=== PATIENT | female | born 1970 | race Caucasian/White ===

== ENCOUNTER 2024-03-14 14:48 | Emergency (ER) | payer OTHER, SELFPAY ==
[2024-03-14 14:56] VITALS: BP 103/58
--- NOTE | 2024-03-14 16:05 | ED.GENMED ---
History of Present Illness
General
Chief Complaint: Chest Pain
Source: patient
Time Seen by Provider: 03/14/24 15:50
History of Present Illness
History of Present Illness:
54yoF with a history of depression presenting for evaluation of chest discomfort. She initially had pain in her left arm 4 days ago while she was sitting watching a movie. The pain was throughout her left arm which resolved after about a minute. She
then had a twinge in her chest which also resolved. The next day, the patient had a transient episode of dizziness and nausea after she was singing in the car. She also had a pressure in her chest at that time. She currently has a mild pressure in
her chest and a sharp pain with peak inspiration. She also states her head feels 'funny.' No shortness of breath, syncope, paresthesias, weakness, visual changes. She called her PCP today and she was advised to go to the ED for evaluation. Her only
current medication is Zoloft.
Past History
Past History
ED Past Medical History: Other ( x2, ventral hernia repair, anxiety, depression)
Social History
Tobacco: Smoker
Alcohol: Occasional
Family History
Family History: Other (Sister with hep C. and pneumonia)
Phy Exam
General Physical Exam
General Presentation: well appearing and no apparent distress
General age: appears stated age
General Skin: warm and dry
General Habitus: normal
General Mental: alert
ENT Exam
ENT Exam: normocephalic
Cardiovascular Exam
Cardiovascular Exam: regular rate/rhythm, no murmur and normal peripheral pulses (2+ radial pulses bilaterally)
Pulmonary Exam
Pulmonary Exam: lungs clear, no respiratory distress, no rales, no crackles, no rhonchi and no wheezing
Neurological Exam
Neurological Exam: alert, no motor deficits and other (CN 2-12 intact. PERRL. EOMs intact. Negative drift x4. Normal finger to nose and heel to [place] bilaterally. )
[place] Coma Scale
Eye Opening: Spontaneous
Verbal Response: Oriented
Motor Response: Obeys Commands
GCS Total Score: 15
Skin Exam
Skin Exam: normal color and warm/dry
Psychiatric Exam
Psychiatric Exam: normal mood/affect
Scores
Heart Score for Chest Pain Patients
STEMI patient?: No
History: Slightly or Non-Suspicious
ECG: Nonspecific Repolarization
Age: >45 - <65 years
Risk Factors: No Risk Factors
Troponin: </= Normal Limit
Heart Score for Chest Pain Patients: 2
Heart Score Risk: 2.5% MACE over next 6 weeks
Course
Orders/Labs/Results
Orders:
Orders
03/14/24 14:49
Electrocardiogram (*1) Urgent
Reason for Study: Chest Pain
EKG- Treatment ONCE
03/14/24 16:05
Cardiac Monitoring- Treatment ONCE
CR Chest - 2 Views Urgent
Comment:
Reason For Exam: CP
03/14/24 16:20
Complete Blood Count/With Diff Urgent
Comprehensive Metabolic Panel Urgent
D-Dimer Urgent
Troponin I Urgent
Abnormal Lab Results
03/14/24
16:20
Hgb 11.2 L g/dL
(12.0-16.0)
Hct 35.7 L %
(37.0-47.0)
MCV 80.4 L fL
(81.0-99.0)
MCH 25.2 L pg
(27.0-31.0)
MCHC 31.4 L g/dL
(33.0-37.0)
Monocytes % 9.9 H %
(1.7-9.3)
Creatinine 1.1 H mg/dL
(0.6-1.0)
Total Bilirubin 0.1 L mg/dl
(0.2-1.3)
03/14/24 16:20
03/14/24 16:20
Vital Signs
Initial and Last Documented VS:
Initial Vital Signs
Temp Pulse Resp BP Pulse Ox
98.2 F 54 18 103/58 100
03/14/24 14:56 03/14/24 14:56 03/14/24 14:56 03/14/24 14:56 03/14/24 14:56
Last Documented Vital Signs
Temp Pulse Resp BP Pulse Ox
98.2 F 53 20 113/70 98
03/14/24 14:56 03/14/24 17:51 03/14/24 17:51 03/14/24 17:51 03/14/24 17:51
MDM/Problems Addressed
Differential Diagnosis Includes:
54yoF here with mild chest pressure. Had a transient episode of L arm pain 4 days ago. Also states head feels 'funny.' No exertional symptoms. VSS. She is well appearing in no distress. Exam is reassuring. Differential diagnosis includes but is not
limited to: ACS, PE, pneumonia, pleurisy, musculoskeletal, nonspecific chest pain
Initial ED plan: Check cardiac labs, D-dimer, EKG, and CXR.
*EKG
Interpreted by ED Provider?: Yes
EKG Intrepretation Date: 03/14/24
Heart Rate: 50
Rate: bradycardiac
Rhythm: sinus
[place]: normal axis
Interval: normal interval
QRS Pattern: normal QRS
Ischemia: T-wave inversion (isolated T wave inversion in V3)
*Critical Care Note
Total Time (30-74mins, 75-104mins- exclusive of procedures): Not Applicable
Update Note
Update Note:
EKG shows sinus bradycardia with T wave inversion in V3. No ST changes or reciprocal changes noted. Troponin WNL. D-dimer normal making PE very unlikely. CXR is clear. HEART score is 2. No indication for admission. She was advised to f/u closely
with her PCP. Strict ED return precautions discussed. She expressed understanding and is agreeable to plan. She was discharged in stable condition.
ED Attending Note
-
Portions of this chart may have been created with voice recognition software.� Occasional wrong word or��sound alike� substitutions may have occurred due to the inherent limitations of voice recognition software.
Discharge Plan
Departure
Patient Disposition: Home (Routine Discharge)
Date of Disposition: 03/14/24
Time of Disposition: 17:32
Patient with high blood pressure during this ER visit?: No
Discharge Problem:
Chest pain
Instructions: Chest Pain PCP Follow Up
Prescriptions:
No Action
sertraline 50 MG tablet
50 mg PO DAILY
doxycycline hyclate 100 MG capsule
100 mg PO Q12 Qty: 20 1RF
hydrocodone-acetaminophen [Vicodin] 1 EACH tablet
1 ea PO Q4HPRN PRN (Reason: pain) Qty: 20 0RF
ondansetron 4 MG tablet,disintegrating
4 mg PO TIDPRN PRN (Reason: NAUSEA) Qty: 20 0RF
ofloxacin 0.3 % drops
2 drp ophthalmic (eye) QID Qty: 5 0RF
Referrals:
Pee Alvarez MD [Family Provider] -
Activity Restrictions/Additional Instructions:
Please call your family doctor tomorrow to schedule a follow-up appointment. Return to the ER immediately with any new or worsening symptoms.
Interventions
Interventions:
*Risk Screen - Suicide Last Done: 03/14/24 14:56
*General Assessment Last Done: 03/14/24 16:21
*Neglect/Abuse Screening Last Done: 03/14/24 14:56
*ED COVID-19 Vaccine History Last Done: 03/14/24 14:56
*Nursing Disposition Last Done: 03/14/24 17:51
ED- Cardiac Assessment Last Done: 03/14/24 16:22
Discharge Date and Time
Discharge Date/Time: 03/14/24 17:52
Print Language: ARMENIAN
[2024-03-14 16:13] VITALS: BMI 23.0
[2024-03-14 16:32] LABS: % Basophils 1.1 % (0-2); % Eosinophils 1.6 % (0-6); % Immature Granulocytes 0.2 % (0-0.5); % Lymphocytes 31.6 % (20.5-51.1); % Monocytes 9.9 % (1.7-9.3); % Neutrophils 55.6 % (42.2-75.2); Absolute Basophils 0.1 10^3/uL (0-0.2); Absolute Eosinophils 0.1 10^3/uL (0-0.7); Absolute Lymphocytes 1.8 10^3/uL (1.2-3.4); Absolute Monocytes 0.6 10^3/uL (0.1-0.6); Absolute Neutrophils 3.2 10^3/uL (1.4-6.5); Hematocrit 35.7 % (37.0-47.0); Hemoglobin 11.2 g/dL (12.0-16.0); Mean Corp Hgb Conc. 31.4 g/dL (33.0-37.0); Mean Corpuscular Hgb 25.2 pg (27.0-31.0); Mean Corpuscular Volume 80.4 fL (81.0-99.0); Mean Platelet Volume 10.3 fL (7.4-10.4); Nucleated Red Blood Cells % 0 %; Platelet Count 259 10^3/uL (130-400); Red Blood Cell Count 4.44 10^6/uL (4.20-5.40); Red Cell Dist. Width 14.5 % (11.5-14.5); White Blood Cell Count 5.7 10^3/uL (4.8-10.8)
[2024-03-14 16:44] LABS: ALT (SGPT) 18 U/L (0-35); AST (SGOT) 21 U/L (14-36); Albumin 4.3 g/dl (3.5-5.0); Alkaline Phosphatase 44 U/L (38-126); Blood Urea Nitrogen 17 mg/dl (7-17); Calcium 9.3 mg/dl (8.4-10.2); Carbon Dioxide 26 mmol/L (22-30); Chloride 105 mmol/L (98-107); D-Dimer 0.33 ug/mlFEU (0.00-0.50); Estimated Creatinine Clearance 47 ml/min; Glucose 79 mg/dl (70-99); Potassium 3.9 mmol/L (3.5-5.1); Sodium 143 mmol/L (135-145); Total Bilirubin 0.1 mg/dl (0.2-1.3); Total Protein 6.7 g/dl (6.3-8.2); eGFR > 60.00
[2024-03-14 16:55] LABS: Troponin I < 0.012 ng/ml
[2024-03-14 17:00] VITALS: BP 113/70
[2024-03-14 17:51] VITALS: BP 113/70
== END 2024-03-14 17:52 | disposition home or self-care (01) ==
LOC: EMR 14:48
PROVIDERS: Physician Assistant; EMERGENCY PHYSICIAN Emergency Medicine; FAMILY PHYSICIAN Internal Medicine
DX: R07.89 Other chest pain (principal); F41.8 Other specified anxiety disorders; F17.200 Nicotine dependence, unspecified, uncomplicated
CPT/HCPCS: 99283; 71046; 80053; 84484; 85025; 85379; 93005